=== PATIENT | male | born 1945 | race Caucasian/White ===

== ENCOUNTER 2016-12-19 13:30 | Inpatient (IN) | payer MEDICARE, BC ==
[~2016-12-19] VITALS: Ht 170.2 cm; Wt 92.9 kg
--- NOTE | ~2016-12-19 | DS ---
PATIENT'S NAME: PHOEBE COBIAN [facility] AGE: 71 Y [address] ROOM: [address] [address] LOCATION: GPCU ADMIT DATE: 12/19/2016 Discharge Summary DISCHARGE DATE: 12/23/2016 FAMILY PHYSICIAN: Kristofer Paredes MD ATTENDING PHYSICIAN: Sera Castro INCORRECT WORK TYPE BY PROVIDER 01/03/17 AO DISCHARGE DIAGNOSES: 1. Acute anterior ST-elevation myocardial infarction. 2. History of hyperlipidemia. 3. Hypertension. 4. Ejection fraction at the time of discharge was 40% to 45%. 5. Hypotension right after his percutaneous coronary intervention requiring intra-aortic balloon pump placement. 6. No ischemia involving right coronary artery territory, which was not that well imaged. DISCHARGE MEDICATIONS: 1. Try to avoid Celebrex. 2. Aldactone 25 mg half a tablet a day. 3. Protonix 40 mg a day. 4. Aspirin 81 mg a day. 5. Atorvastatin 80 mg a day. 6. Enalapril 1.25 mg twice a day. 7. Brilinta 90 mg twice a day. 8. Acetaminophen. 9. Docusate. 10. Metoprolol 25 mg twice a day. 11. Nitroglycerin as needed. COURSE IN THE HOSPITAL: Mr. Cobian is a 71-year-old male patient, who was transferred from [place] [facility] with acute anterior wall ME and was directly taken to the concrete plant laborer and primary angioplasty was performed successfully. His right coronary artery was not that well visualized because of which he underwent a stress test later. He did have some lesions in his proximal conus branch. He had a long drug-eluting stent put in and at end of the procedure, his blood pressure was rather on the lower side requiring intra- aortic balloon pump placement. His blood pressure is improved considerably and the balloon pump was removed the next day. The patient was progressing well after that and repeat echocardiogram revealed that his EF has improved from about 30% to about 40% to 45%. There were no areas of akinesia including the apex because of which he was not started on Coumadin therapy. He will be seen in the office in 2 weeks and follow up cardiac rehab will be started. His Lexiscan Cardiolite study revealed no evidence of ischemia involving the inferior wall. So no additional tests were done at this time. PATIENT'S NAME: PHOEBE COBIAN [facility] AGE: 71 Y [address] ROOM: [place] [address] LOCATION: [facility] ADMIT DATE: 12/19/2016 Discharge Summary DISCHARGE DATE: 12/23/2016 FAMILY PHYSICIAN: Kristofer Paredes MD ATTENDING PHYSICIAN: Sera Castro He is to call if he has any new symptoms when he is home. MD FLAQUITO AVALOS/adonis /[id number] INCORRECT WORK TYPE BY PROVIDER 01/03/17 AO d: 12/27/16 2127 t: 01/16/17 1454, DISCHARGE SUMMARY
--- NOTE | ~2016-12-19 | HP ---
PATIENT'S NAME: MANGO [facility] AGE: 71 Y [address] ROOM: [place] [address] LOCATION: [facility] ADMIT DATE: 12/19/2016 History & Physical DISCHARGE DATE: FAMILY PHYSICIAN: PHYSICIAN, UNKNOWN ATTENDING PHYSICIAN: Sera Castro DATE OF SERVICE: HISTORY OF PRESENT ILLNESS: Mr. Cobian is a 71-year-old male patient, who presented to the emergency room in [place] with about a 1-hour duration of chest pain, which was located over all across upper chest, into both upper arm, as well as into the jaw, associated with some sweating. This was about 7 on a scale of 1-10. He received one nitroglycerin, and an EKG showed acute anterior wall ST-segment elevation CT. I was contacted, and the transit time was felt to be about 1 hour in all, so I decided to give him heparin, Integrilin, aspirin, and bring him to the laborer brooder farm directly. Upon arrival to the laborer brooder farm, the patient still had about 4 on a scale of 1-10 chest pain. Coronary angiography and primary angioplasty were planned right away. The patient had similar chest pain lasting for about 20 minutes about a week earlier, which was also much milder and spontaneously resolved. He has never had any other kind of chest pains. 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 He has noticed that he has some shortness of breath with strenuous activities for the past 6 months or so. He has still been in functional class II with no paroxysmal nocturnal dyspnea or orthopnea. There has been no lightheadedness, dizziness, presyncope, syncope, palpitations, or ankle swelling. There is no history of rheumatic fever, heart murmur, heart failure, dilated or enlarged heart, or any diagnosed cardiac arrhythmias. There is no history of CT or angina or nitroglycerin use. MEDICATIONS: His current medications are: 1. Benazepril. 2. Amlodipine. ALLERGIES: NONE. PAST MEDICAL HISTORY: Apparently, he had a fall after he went on a medication. SOCIAL HISTORY: PATIENT'S NAME: [facility] AGE: 71 Y [address] ROOM: [place] [address] LOCATION: [facility] ADMIT DATE: 12/19/2016 History & Physical DISCHARGE DATE: FAMILY PHYSICIAN: PHYSICIAN, UNKNOWN ATTENDING PHYSICIAN: Sera Castro The patient is . He denies abusing alcohol. His appetite is good. His weight has gone up a little during wintertime. His sleep has been good. FAMILY HISTORY: No premature coronary artery disease. REVIEW OF SYSTEMS: A 12-point review of systems reveals: 1. Corrective lenses. 2. Dry cough secondary to medications. 3. DEGENERATIVE JOINT DISEASE, shoulders and hip. PHYSICAL EXAMINATION: VITAL SIGNS: On examination, his blood pressure initially was in the 140s in the laborer brooder farm, heart rate was in the 80s and regular, respiration was 18, with occasional PVCs. HEENT: Normal. NECK: Supple with no JVD, thyromegaly, lymphadenopathy, or carotid bruit. HEART: PMI is not well located. First and second heart sounds are regular. There are no added sounds or murmurs. CHEST: Clear to auscultation. ABDOMEN: Soft and nontender. Bowel sounds are normally present. EXTREMITIES: Reveal no edema. Central nervous system is intact. LABORATORY DATA: His 12-lead EKG is consistent with acute anterior wall ST-segment elevation CT. ASSESSMENT: Recent onset of ST-elevation myocardial infarction within the last 2 hours to 3 hours. RECOMMENDATION: Primary PCI. MD FLAQUITO AVALOS/adonis /[id number] D: [id number] T: [id number] HISTORY & PHYSICAL
--- NOTE | ~2016-12-19 | ESTC ---
Cardiac Perfusion Imaging Demographics Patient Name MANGO Foss Gender Male Patient Number [id number] Race Visit Number [id number] [place] [id number] Room Number G6306 Accession Number [id number] Height 67 inches Date of 1945 Weight 203.5 pounds MD Reggie Foss MD Interpreting Gloria Zamora Date of study 12/23/2016 Physician Supervising /LINDSAYP Gloria Zamora NM Technologist Luis Martinez MD Ordering Physician Gloria Zamora Stress Elizabeth Heard RVT, procurement technician RDCS Stress ECG Reading Gloria Zamora Nurse Amari Cullen RN Physician Procedure Admit Source:Transfer acute care facility. Procedure Type: Nuclear Stress Test:Cardiolite Stress Test Procedure Start time: 12/23/2016 10:00 Indications: Chest pain. Risk Factors The patient risk factors include:prior PCI on 12/19/2016;hypercholesterolemia, hypertension, last creatinine: 1.4 mg/dl and creatinine clearance: 63.18 ml/min. Conclusions Summary No TID. Medium to large area of the distal half of the anterior wall,anterior septum and apex of severe degree most consistent with prior RI. No reversible defects seen. LVEF:42%. Distal anterior wall and apex are severely hypokinetic.Distal half of septum is almost dyskinetic.Rest of LV wall segments are nearly normal. Stress Protocols Resting ECG RSR. Anteroseptal RI ?age. Pre-stress physical exam: Un changed. Predicted HR: 149 bpm ECG Findings No ECG changes suggestive of ischemia. Arrhythmias No rhythm abnormality. Symptoms SOB. Stress Interpretation Lexiscan cardilite with normal hemodynamic response. SOB.No chest pain. No ischemia. No arrythmia. Imaging Results High risk findings Summed scores - Summed stress score: 15 - Summed rest score: 12 - Summed difference score: 3 Stress ejection Ejection fraction:42 % EDV :117 ml ESV :68 ml Stroke volume :49 ml LV mass :149 gr LV size:Normal Normal LV function Imaging Protocols Rest Stress Isotope:Tc99m Sestamibi IV Isotope: Tc99m Sestamibi IV Isotope dose:13.4 mCi Isotope dose:40.3 mCi Date:12/23/2016 08:01 Date:12/23/2016 10:15 Technique: SPECT Technique: Gated Supine SPECT Supine IV remains in place after procedure. Scan Time:30 minutes post injection Scan Time:45-60 minutes post injection Procedure Medications - Regadenoson (Lexiscan) 0.4 mg IV over 10-15 sec. I.V. 0.4 mg. Medical History Admission Data Admission date: 12/19/2016 Admission Time: 14:03 Hospital Status: Inpatient. Signatures dtt: Sera Castro dtd: 12/23/16 1000 Physician Self Edit
--- NOTE | ~2016-12-19 | ECHO ---
Transthoracic Echocardiography Report (TTE) Demographics Patient Name PHOEBE COBIAN Date of Study 12/19/2016 Patient Number [id number] Visit Number [id number] Date of 1945 Room Number G6206 Gender Male Number Age 71 year(s) Referring Splicer Operator Janet RVT, RDCS Physician Sonia Physician Interpreting Gloria Zamora MD News Analyst Physician Supervising Ordering Gloria Zamora MD, MD/MLP Physician Nurse Stress Tube Building Machine Operator Conclusions Contractility Score Summary Hypokinesis of the Mid anterior, the Mid britany-septal, the Mid infero-septal, the Apical septal and the Apical cap segments. Summary Technically difficult exam. Definity 4 ml administered. The estimated left ventricular ejection fraction is 30%.Large area of the anterior wall,septum and apex are severely hypokinetic.LV wall thickness and internal dimensions are normal. Trivial MR,TR and NC. Procedure Type of Study TTE procedure:2D Echocardiogram, Complete Echo with Contrast NH. Procedure Date Date: 12/19/2016 Start: 07:18 PM Study Location: Inpatient Portable Technical Quality: Limited visualization Additional Indications:STEMI Appropriate Use Criteria: 9 Patient Status: STAT HR: 99 bpm BP: 105/70 mmHg Allergies - No known allergies. M-Mode/2D Measurements LV Diastolic Dimension: 3.95 cm LV Systolic Dimension: 3.41 cm LV Septum Diastolic: 1.08 cm LV PW Diastolic: 1.23 cm AO Root Dimension: 2.7 cm Cardiac Output: 5.76 l/min AV Cusp Separation: 1.6 cm RV Diastolic Dimension: 2.99 cm LA volume: 27 ml LVOT: 2.1 cm RV Base: 2.3 cm LVOT VTI: 16.8 cm RV Mid: 2.02 cm LV Stroke volume: 58.16 ml TAPSE: 1.89 cm TDI-S': 14.2 cm/s Doppler Measurements AV Peak Velocity: 1.17 m/s MV Peak E-Wave: 0.59 m/s AV Peak Gradient: 5.48 mmHg MV Peak A-Wave: 1.02 m/s AV Mean Gradient: 4 mmHg MV E/A Ratio: 0.58 LVOT Peak Velocity: 0.73 m/s MV P1/2t: 52 msec TR Gradient:11.97 mmHg PV Peak Velocity: 1.3 m/s Estimated RAP:3 mmHg PV Peak Gradient: 6.76 mmHg Estimated RVSP: 15 mmHg Estimated PASP: 14.97 mmHg E' Septal Velocity: 0.05 m/s A' Septal Velocity: 0.1 m/s E' Lateral Velocity: 0.06 m/s A' Lateral Velocity: 0.13 m/s Findings Left Ventricle Normal LV wall thickness and internal dimensions.LVEF:30%.Large area of the anterior wall,septum and apex are severely hypokinetic. Right Ventricle Normal right ventricle structure and function. Left Atrium Normal left atrial size. Right Atrium Normal right atrial size. Mitral Valve Trivial mitral regurgitation by color Doppler. Aortic Valve Normal aortic valve structure and function. Tricuspid Valve Trivial tricuspid regurgitation by color Doppler. Pulmonic Valve Trivial, Mild pulmonic valve regurgitation by color Doppler. Pericardial Effusion No evidence of pericardial effusion. Miscellaneous Visualized portions of the aortic root and ascending aorta appear normal in size. Pleural Effusion No evidence of pleural effusion. Contractility Score LV regional wall motion:(0-Non visualized 1-Normal 2-Hypokinesis 3-Akinesis 4-Dyskinesis 5-Aneurysm) Signature dtt: Sera Castro dtd: 12/19/16 1918 Physician Self Edit
--- NOTE | ~2016-12-19 | CATH ---
Cardiac Diagnostic + PCI Report Demographics Patient Name MANGO Foss Gender Male Date of 1945 Age 71 year(s) Patient Number [id number] Date of Study 12/19/2016 Visit Number [id number] Room Number G[address] [place] [id number] Ht 170.18 cm Wt 92.3 kg Referring Jayna Ortega Primary Physician Physician KEZIA Performing Gloria Secondary Physician Physician Sera MCLEAN Diagnostic Gloria Assisting Physician Physician Sera MCLEAN Interventional Gloria Physician Director Summer Sessions Physician Sera MCLEAN Findings and Conclusions Diagnostic Findings and Conclusion Anterior STEMI. LVEDP 24. Heavy calcification involving proximal coronaries. Ostial/Proximal LAD 100% stenosis. Low blood pressure worrisome for cardiogenic shock. Diagnostic Recommendations PCI of ostial/proximal LAD. IABP or mechanical circulatory support. Interventional Findings and Conclusion Successful PCI of ostial/prox LAD lesion into OBB 3 flow distally. IABP placed, pressures augmented to 120 mmHg. Interventional Recommendations DAPT for one year. Aggressive secondary precaution measures. Procedure Description The patient was brought to the diagnostic cardiac catheterization-EP laboratory by emergency personal. Physician deemed procedure as EMERGENT. The planned puncture-incision site(s) were shaved and prepped with ChloraPrep and draped in the usual sterile manner. Conscious sedation, supplemental oxygen, and pain control medications were delivered by a registered nurse under physician guidance. Surface ECG rhythm, blood pressure measurement, and pulse oximetry were monitored throughout the procedure. Arterial access. The access site was infiltrated with lidocaine. The vessel was entered with the Seldinger technique. A sheath was advanced into the vessel and used for catheter placement. Selective left coronary angiography. A catheter was advanced into the left coronary vessel ostium under Fluoroscopic guidance. Contrast was injected by hand. Images were obtained in multiple projections. Selective right coronary angiography. A catheter was advanced into the right coronary vessel ostium under fluoroscopic guidance. Contrast was injected by hand. Images were obtained in multiple projections. Left heart catheterization. A catheter was advanced across the aortic valve to the left ventricle under fluoroscopic guidance. Resting hemodynamics were obtained. Angioplasty and Stent Placement: A guiding catheter was used to intubate the vessel. A 0.14 wire was then used to cross the lesion. A balloon catheter was placed across the lesion and inflated. The balloon catheter was then removed. A Drug Eluting Stent was placed and inflated. Post placement angiograms were performed. IABP placement. The balloon catheter was advanced into the aorta and the tip was fluoroscopically positioned just distal to the left subclavian artery origin. The floppy guidewire was removed, and the central lumen of the catheter was flushed and attached to a pressure transducer. Balloon pumping was initiated, adjusting inflation and deflation times to maximize diastolic augmentation and minimize presystolic LV afterload. The intra-aortic balloon catheter was sutured in place at the end of the procedure. Arterial artery hemostasis was achieved. The patient was transferred to a regular nursing floor via cart accompanied by a nurse. The patient left the laboratory in stable condition. Diagnostic Cath Status: Emergency Interventional Cath Status: Emergency Procedure Procedure Type Diagnostic procedure:Angiography:, Coronary Angios w/LHC, Support:, IABP:, Insertion PCI procedure:Drug Eluting Coronary Stent:, LAD Indications: Elevated Troponin, Acute anterior wall ME and Cardiogenic shock. Angiographic Findings Dominance: Right Cardiac Arteries and Lesion Findings LMCA: Luminal irregularities. LAD: Lesion on Prox LAD: Ostial.100% stenosis 32 mm length reduced to 0%. Pre procedure BOB 0 flow was noted. Post Procedure BOB III flow was present. The guidewire cross was successful.The lesion was diagnosed as a moderate risk lesion.Culprit lesion. Devices used - Luge Wire .014 x 182. Number of passes: 1. - Emerge Balloon 2.5 x 15. 2 inflation(s) to a max pressure of: 10 patricia. - Promus Premier 3.0 x 32 Stent. 1 inflation(s) to a max pressure of: 14 patricia. LCx: High, lateral, small. OM2, 3 and 4 are small. Lesion on 1st Ob Kelle: Proximal subsection.40% stenosis . Lesion on 1st Ob Kelle: Distal subsection.80% stenosis . Lesion on 3rd Ob Kelle: Mid subsection.90% stenosis . Comments:OM 5. RCA: Faintly visualized. PL not selectively engaged. Coronary Tree Procedure Data Procedure Date Date: 12/19/2016Start: 02:38 PM Entry Locations - Retrograde Percutaneous access was performed through the Right Femoral artery (Primary location). A 7 Fr sheath was inserted. Hemostasis was successfully obtained using a sterile dressing to secure the sheath in place. Closure Comments: Dressing in place by Matthew Zimmerman. Procedure Medications Order and Administration + + + + + !Time !Medication !Dosage !Route ! + + + + 12/19/2016 02:40 PM!Versed !1 mg !I.V. ! + + + + + 12/19/2016 02:40 PM!Fentanyl !50 mcg !I.V. ! + + + + 12/19/2016 02:48 PM!Versed !1 mg !I.V. ! + + + + + !12/19/2016 02:49 PM!Heparin (ACC_3) !3000 units! ! + + + + + !12/19/2016 03:00 PM!0.9% NaCl !100 ml !I.V. bolus ! + + + + + !12/19/2016 03:05 PM!Atropine !0.5 mg !I.V. ! + + + + + !12/19/2016 03:07 PM!Sudarshan-Synephrine (Phenylephrine)!50 mcg !I.V. bolus ! + + + + + !12/19/2016 03:08 PM!Sudarshan-Synephrine (Phenylephrine)!50 mcg !I.V. bolus ! + + + + + !12/19/2016 03:10 PM!Sudarshan-Synephrine (Phenylephrine)!100 mcg !I.V. bolus ! + + + + + !12/19/2016 03:13 PM!Sudarshan-Synephrine (Phenylephrine)!100 mcg !I.V. bolus ! + + + + + !12/19/2016 03:23 PM!Sudarshan-Synephrine (Phenylephrine)!40 mcg/min!I.V. bolus ! + + + + + !12/19/2016 03:23 PM!Sudarshan-Synephrine (Phenylephrine)!50 mcg !I.V. bolus ! + + + + + !12/19/2016 03:29 PM!Sudarshan-Synephrine (Phenylephrine)!60 mcg/min!I.V. bolus ! + + + + + !12/19/2016 03:29 PM!Sudarshan-Synephrine (Phenylephrine)!60 mcg/min!I.V. bolus ! + + + + + !12/19/2016 03:45 PM!Heparin Drip ( 2500u/250ml) ! !I.V. drip ! + + + + + !12/19/2016 03:46 PM!Brilinta (Ticagrelor) (ACC_20)!180 mg !P.O. ! + + + + + 12/19/2016 04:00 PM!Sodium Bicarbonate (Bolus) !70 mg !I.V. ! + + + + + 12/19/2016 04:12 PM!Amiodarone !150 mg !I.V. bolus ! + + + + + Devices Used - A6 Fr. BS JR 4 Diag. Catheterwas used for:Right coronary angiography. - A6 Fr. BS JL 4 Diag. Catheterwas used for:Left coronary angiography. - A6 Fr. EBU 3.5 Guide Catheterwas used for:LAD Intervention. - A6 Fr. JJ 3DRC Diag. Catheterwas used for:Right coronary angiography.Unable to cannulate the vessel. - A6 Fr. BS AL1 Diag. Catheterwas used for:Right coronary angiography.Unable to cannulate the vessel. - A6 Fr. BS AR Mod Diag. Catheterwas used for:Right coronary angiography.Unable to cannulate the vessel. - A6 Fr. BS AR1 Diag. Catheterwas used for:Right coronary angiography.Unable to cannulate the vessel. - A6 Fr. BS JR 4 Diag. Catheterwas used for:Right coronary angiography. - A6 Fr. BS Angled Pigtail Diag. Catheterwas used for:LV Pressures. Contrast Material - Isovue [id number] ml Fluoroscopy Time: Diagnostic: 23:06 minutes. Total: 23:06 minutes. Fluoroscopy Dose: Diagnostic: 2844 mGy. Total: 2844 mGy. Estimated Blood Loss: 57 ml. IABP: IABP was Inserted after PCI has begun. Medical History Allergies - No known allergies. Risk Factors The patient risk factors include:hypertension, last creatinine: 1.4 mg/dl and creatinine clearance: 63.18 ml/min. Admission Data Admission Date: 12/19/2016 Admission Time: 02:03 PM Admit Source: [facility] Insurance Payors: Medicare. Clinical Evaluation Leading to Procedure - The patient's CAD presentation was assessed as: STEMI.The symptom onset was first noted on 12/19/2016 11:30 AM(time was estimated). - The patient has been in a state of cardiogenic shock within the last 24 hrs. Hemodynamics Condition: Rest O2 Consumption: Estimated: 252.70Heart Rate: 92 bpm Pressures (mmHg) +-----+ + !Site !Pressure ! +-----+ + !AO !126/78 (101) ! +-----+ + !AO !254/249 (253) ! +-----+ + !AO !82/56 (67) ! +-----+ + !AO !79/54 (65) ! +-----+ + !AO !/ (270) ! +-----+ + !LV ! ,27 ! +-----+ + !LV ! ,27 ! +-----+ + !AO !92/53 (70) ! +-----+ + !LV ! , ! +-----+ + Valve Gradients and Areas + +---------+---------+---------+ +---------+ + !Valve !Peak !Mean !Area !Index !Flow !Source ! + +---------+---------+---------+ +---------+ + !Aortic !0 !0 ! ! ! ! ! + +---------+---------+---------+ +---------+ + !Aortic !0 !0 ! ! ! ! ! + +---------+---------+---------+ +---------+ + Shunts Oxygen Values O2 Capacity 204 O2 Consumption 252.7 Signatures dtt: Sera Castro dtsunny: 12/19/16 1438 Physician Self Edit
--- NOTE | ~2016-12-19 | ECHO ---
Transthoracic Echocardiography Report (TTE) Demographics Patient Name PHOEBE COBIAN Date of Study 12/23/2016 Patient Number [id number] Visit Number [id number] Date of 1945 Room Number G6306 Gender Male Number Age 71 year(s) Referring Gloria Zamora Lobby Porter Glory Brown, Physician RT,RVT,RDCS Physician Interpreting Gloria Zamora Loft Patternmaker Physician Supervising Ordering Gloria Zamora MD/MLP Physician MD Nurse Stress Commission Auditor Conclusions Summary The estimated left ventricular ejection fraction is 40-45%.Distal half of septum,apex and distal lateral segments are moderate to severely hypokinetic.Remainder of LV wall segments are low normal.LV internal dimension and wall thickness are probably normal. Procedure Type of Study TTE procedure:Echo Limited w/ Contrast. Procedure Date Date: 12/23/2016 Start: 11:05 AM Study Location: Echo Lab Technical Quality: Good visualization Indications:Coronary artery disease. Additional Indications:EF evaluation. Appropriate Use Criteria: 7 Patient Status: Routine HR: 86 bpm BP: 140/84 mmHg Allergies - No known allergies. Signature dtt: Sera Castro dtd: 12/23/16 1105 Physician Self Edit
[2016-12-19] MEDS ORDERED: HYDROCODON-ACE1 EAC4 PO (18:24)
[2016-12-19] MEDS ORDERED: CELEBREX100 MG PO (18:24)
[2016-12-19] MEDS ORDERED: NORVASC10 MG PO (18:24)
[2016-12-19] MEDS ORDERED: FISH OIL 1,0001 EAC1 PO (18:25)
[2016-12-19] MEDS ORDERED: HYDROCHLOROTH12.5 MG PO (18:25)
[2016-12-19] MEDS ORDERED: FLOMAX0.4 MG PO (18:25)
[2016-12-19] MEDS ORDERED: LOTENSIN40 MG PO (18:25)
[2016-12-19] MEDS ORDERED: MAG-OX-400(241400 MG PO (18:26)
[2016-12-19] MEDS ORDERED: VITAMIN E400 UNI2 PO (18:26)
[2016-12-19] MEDS ORDERED: THERAGRAN-M1 TAB PO (18:26)
[2016-12-19] MEDS ORDERED: GARLIC1000 MG PO (18:26)
[2016-12-19] MEDS ORDERED: VINEGAR PO (18:27)
[2016-12-19 19:30] LABS: BASOPHIL % 0.3 %; EOSINOPHIL % 0.1 %; HEMATOCRIT 39.8 % (37.0-53.0); HEMOGLOBIN 13.5 g/dL (11.0-16.0); IMMATURE GRANULOCYTE # 0.1 K/uL (0.0-0.3); IMMATURE GRANULOCYTE % 0.5 %; LYMPHOCYTE # 0.9 K/uL (0.8-4.0); LYMPHOCYTE % 8.4 %; MCH 29.5 pg (27.0-34.0); MCHC 33.9 gm/dL (32.0-36.5); MCV 87.1 fl (83.0-98.0); MONOCYTE # 0.6 K/uL (0.0-1.0); MONOCYTE % 5.3 %; MPV 10.9 fl (9.4-12.4); NEUTROPHIL # (ANC) 9.1 K/uL (1.4-9.0); NEUTROPHIL % 85.4 %; NRBC % 0 /100WBC (0-0.00); PLATELET COUNT 177 K/uL (150-450); RBC 4.57 M/uL (3.50-5.50); RDW-CV 14.8 % (11.9-14.6); WBC 10.7 K/uL (4.0-11.0)
[2016-12-19 20:08] LABS: CPK 3238 IU/L (35-332)
[2016-12-20 01:33] LABS: CPK 3843 IU/L (35-332)
[2016-12-20 07:06] LABS: BASOPHIL % 0.2 %; EOSINOPHIL # 0.1 K/uL (0.0-0.5); EOSINOPHIL % 0.7 %; HEMATOCRIT 39.1 % (37.0-53.0); HEMOGLOBIN 13.2 g/dL (11.0-16.0); IMMATURE GRANULOCYTE % 0.3 %; LYMPHOCYTE # 1.1 K/uL (0.8-4.0); LYMPHOCYTE % 9.1 %; MCH 29.3 pg (27.0-34.0); MCHC 33.8 gm/dL (32.0-36.5); MCV 86.7 fl (83.0-98.0); MONOCYTE % 8.8 %; MPV 10.8 fl (9.4-12.4); NEUTROPHIL # (ANC) 9.3 K/uL (1.4-9.0); NEUTROPHIL % 80.9 %; NRBC % 0 /100WBC (0-0.00); PLATELET COUNT 170 K/uL (150-450); RBC 4.51 M/uL (3.50-5.50); RDW-CV 14.9 % (11.9-14.6); WBC 11.5 K/uL (4.0-11.0)
[2016-12-20 07:26] LABS: ALBUMIN 2.9 gm/dL (3.5-5.0); ANION GAP 13.3 (10.0-19.0); CALCIUM 7.8 mg/dL (8.5-10.5); CREATININE 1.4 mg/dL (0.6-1.3); POTASSIUM 3.3 mMol/L (3.7-5.1); TOTAL BILIRUBIN 0.6 mg/dL (0.0-1.5); TOTAL PROTEIN 6.1 g/dL (6.0-8.4)
[2016-12-21 04:43] LABS: BASOPHIL % 0.2 %; EOSINOPHIL % 0.3 %; HEMATOCRIT 41.7 % (37.0-53.0); IMMATURE GRANULOCYTE % 0.3 %; LYMPHOCYTE % 8.2 %; MCH 29.6 pg (27.0-34.0); MCHC 33.6 gm/dL (32.0-36.5); MCV 88.2 fl (83.0-98.0); MONOCYTE % 8.1 %; MPV 10.7 fl (9.4-12.4); NEUTROPHIL # (ANC) 10.2 K/uL (1.4-9.0); NEUTROPHIL % 82.9 %; NRBC % 0 /100WBC (0-0.00); PLATELET COUNT 158 K/uL (150-450); RBC 4.73 M/uL (3.50-5.50); RDW-CV 15.1 % (11.9-14.6); WBC 12.3 K/uL (4.0-11.0)
[2016-12-21 05:00] LABS: ANION GAP 11.3 (10.0-19.0); CALCIUM 8.1 mg/dL (8.5-10.5); CREATININE 1.2 mg/dL (0.6-1.3)
[2016-12-21 05:01] LABS: POTASSIUM 4.3 mMol/L (3.7-5.1)
[2016-12-23] MEDS ORDERED: ASPIRIN EC81 MG PO (14:20)
[2016-12-23] MEDS ORDERED: LIPITOR80 MG PO (14:21)
[2016-12-23] MEDS ORDERED: VASOTEC2.5 MG PO (14:23)
[2016-12-23] MEDS ORDERED: PROTONIX40 MG PO (14:33)
[2016-12-23] MEDS ORDERED: ALDACTONE25 MG PO (14:33)
[2016-12-23] MEDS ORDERED: BRILINTA90 MG PO (14:34)
[2016-12-23] MEDS ORDERED: TYLENOL325 MG PO (14:35)
[2016-12-23] MEDS ORDERED: COLACE100 MG PO (14:40)
[2016-12-23] MEDS ORDERED: LOPRESSOR25 MG PO (14:46)
[2016-12-23] MEDS ORDERED: NITROSTAT0.4 MG SL (14:47)
== END 2016-12-23 14:30 | disposition disaster alternative care site (69) | DRG 270 ==
LOC: GPCU 13:30 → GICU 14:03 → GPCU 12-22 17:02
PROVIDERS: ADMIT Internal Medicine Interventional Cardiology
PROC: 4A023N7 Measurement of Cardiac Sampling and Pressure, Left Heart, Percutaneous Approach (ICD-10-PCS; principal; 2016-12-19)
PROC: 5A02210 Assistance with Cardiac Output using Balloon Pump, Continuous (ICD-10-PCS; 2016-12-19)
PROC: 027034Z Dilation of Coronary Artery, One Artery with Drug-eluting Intraluminal Device, Percutaneous Approach (ICD-10-PCS; 2016-12-19)
PROC: B211YZZ Fluoroscopy of Multiple Coronary Arteries using Other Contrast (ICD-10-PCS; 2016-12-19)
DX: I21.09 ST elevation (STEMI) myocardial infarction involving other coronary artery of anterior wall (principal); R57.0 Cardiogenic shock; I47.2 Ventricular tachycardia; I10 Essential (primary) hypertension; E78.5 Hyperlipidemia, unspecified
CPT/HCPCS: A9500; C1725; C1769; C1874; C1887; C9606; J0282; J0461; J1327; J1644; J2250; J2370; J2405; J2785; J3010; J3475; J7030; J7050; Q9957

== ENCOUNTER → 2016-12-19 | Outpatient (CLI) | payer MEDICARE, BC ==
[~2016-12-19] MED LIST: ALDACTONE25 MG PO; ASPIRIN EC81 MG PO; BRILINTA90 MG PO; CELEBREX100 MG PO; COLACE100 MG PO; FISH OIL 1,0001 EAC1 PO; FLOMAX0.4 MG PO; GARLIC1000 MG PO; HYDROCHLOROTH12.5 MG PO; HYDROCODON-ACE1 EAC4 PO; LIPITOR80 MG PO; LOPRESSOR25 MG PO; LOTENSIN40 MG PO; MAG-OX-400(241400 MG PO; MUCOMYST 20200 MG/M1 PO; NITROSTAT0.4 MG SL; NORVASC10 MG PO; PROTONIX40 MG PO; THERAGRAN-M1 TAB PO; TYLENOL325 MG PO; VASOTEC2.5 MG PO; VINEGAR PO; VITAMIN E400 UNI2 PO
== END | disposition disaster alternative care site (69) ==
LOC: GAIR 13:32
DX: R07.9 Chest pain, unspecified (principal); I10 Essential (primary) hypertension; Z79.899 Other long term (current) drug therapy
CPT/HCPCS: A0422; A0431; A0436; Q9957

== ENCOUNTER → 2017-03-23 | Outpatient (CLI) | payer MEDICARE, BC ==
--- NOTE | ~2017-03-23 | ESTC ---
Cardiac Perfusion Imaging Demographics Patient Name MANGO Foss Gender Male Patient Number [id number] Race Visit Number [id number] [place] [id number] Room Number Accession Number [id number] Height 67 inches Date of 1945 Weight 195 pounds Constantino Zamora Date of study 03/23/2017 Physician MD Supervising /LINDSAYP Rafael Pearce NM Technologist India Foss MD Ordering Physician Stress wildlife biology technician Stress ECG Reading Rafael Pearce Nurse Blas Ortega Physician Prudence MCLEAN RN Subhash López RN Procedure Admit Source:Other. Procedure Type: Nuclear Stress Test:Cardiolite Stress Test Procedure Start time: 03/23/2017 08:56 Indications: History of CAD. Risk Factors The patient risk factors include:prior PCI on 12/19/2016;physical activity, hypertension, dyslipidemia and prior [place] . Conclusions Summary DTS:6 (lOW RISK) TID: 1.22 Distal anterior moderate ischemia. LVEF:45%. Moderate anterior hypokinesia. Stress Protocols Resting ECG Normal sinus rhythm. PVCs. Pre-stress physical exam: Patient assessed by Dr Hall prior to testing. Stress Protocol:Exercise Predicted HR: 148 bpm ECG Findings No ECG changes suggestive of ischemia. Arrhythmias No new rhythm abnormality. Symptoms Shortness of breath. Stress Interpretation Appropriate hemodynamic response to exercise. No significant ST-T wave changes with exercise. EKG portion is negative for ischemia by diagnostic criteria. The Mir Treadmill score was 6 .This corresponds to a low risk stress test. Imaging Results Applied corrections - Motion correction applied High risk findings Summed scores - LV dilatation (TID) : 1.22 - Summed stress score: 13 - Summed rest score: 9 - Summed difference score: 4 Stress ejection Ejection fraction:45 % EDV :110 ml ESV :60 ml Stroke volume :50 ml LV mass :129 gr LV size:Normal LV systolic function impairment: Mild Imaging Protocols Rest Stress Isotope:Tc99m Sestamibi IV Isotope: Tc99m Sestamibi IV Isotope dose:14.1 mCi Isotope dose:44.3 mCi Date:03/23/2017 07:31 Date:03/23/2017 09:49 Technique: SPECT Technique: Gated Supine SPECT Supine Scan Time:45-60 minutes post Scan Time:45-60 minutes post injection injection Medical History Admission Data Admission date: 03/23/2017 Admission Time: 07:03 Hospital Status: Outpatient. Signatures dtt: Sera Castro dtd: 03/23/17 0856 Physician Self Edit
== END | disposition disaster alternative care site (69) ==
LOC: GRAD 07:03
DX: I25.10 Atherosclerotic heart disease of native coronary artery without angina pectoris (principal)
CPT/HCPCS: A9500

== ENCOUNTER → 2017-04-03 | Outpatient (CLI) | payer MEDICARE, BC ==
[2017-04-03 11:25] LABS: BASOPHIL % 0.4 %; EOSINOPHIL # 0.2 K/uL (0.0-0.5); EOSINOPHIL % 2.4 %; HEMATOCRIT 43.9 % (37.0-53.0); HEMOGLOBIN 14.8 g/dL (11.0-16.0); IMMATURE GRANULOCYTE % 0.3 %; LYMPHOCYTE # 1.1 K/uL (0.8-4.0); LYMPHOCYTE % 15.1 %; MCH 31.2 pg (27.0-34.0); MCHC 33.7 gm/dL (32.0-36.5); MCV 92.4 fl (83.0-98.0); MONOCYTE # 0.6 K/uL (0.0-1.0); MPV 11.5 fl (9.4-12.4); NEUTROPHIL # (ANC) 5.5 K/uL (1.4-9.0); NEUTROPHIL % 73.8 %; NRBC % 0 /100WBC (0-0.00); PLATELET COUNT 170 K/uL (150-450); RBC 4.75 M/uL (3.50-5.50); RDW-CV 14.6 % (11.9-14.6); WBC 7.5 K/uL (4.0-11.0)
[2017-04-03 11:34] LABS: ALBUMIN 3.6 gm/dL (3.5-5.0); ANION GAP 10.3 (10.0-19.0); CALCIUM 8.8 mg/dL (8.5-10.5); CREATININE 1.3 mg/dL (0.6-1.3); POTASSIUM 4.3 mMol/L (3.7-5.1)
== END ==
LOC: LGSOS 10:50
PROVIDERS: Internal Medicine Interventional Cardiology
DX: I25.10 Atherosclerotic heart disease of native coronary artery without angina pectoris (principal)

== ENCOUNTER 2017-04-10 10:47 | Outpatient (CLI) | payer MEDICARE, BC ==
[~2017-04-10] VITALS: Ht 170.2 cm; Wt 86.7 kg
--- NOTE | ~2017-04-10 | CATH ---
Cardiac Diagnostic + PCI Report Demographics Patient Name MANGO Foss Gender Male Date of 1945 Age 72 year(s) Patient Number [id number] Date of Study 04/10/2017 Visit Number [id number] Room Number [id number] [place] [id number] Ht 170.18 cm Wt 86.7 kg Referring Reggie Foss MD Primary Physician Physician Performing Gloria Secondary Physician Physician Sera MCLEAN Diagnostic Gloria Assisting Physician Physician Sera MCLEAN Interventional Gloria Physician Polisher Numeral Physician Sera MCLEAN Findings and Conclusions Diagnostic Findings and Conclusion LVEDP 7. No gradient across aortic valve. Stent seen in LAD. Calcification involving proximal coronaries. Diagnostic Recommendations iFR LCFX and OM 2. Interventional Findings and Conclusion iFR OM 2 0.99 iFR distal LCFX 0.99 Interventional Recommendations Continue medical treatment. Procedure Description The patient was brought to the diagnostic cardiac catheterization-EP laboratory in the fasting, non-sedated state. Informed consent was obtained in the written and verbal form after the risks and benefits were explained. The patient had no further questions and agreed to proceed. The planned puncture-incision site(s) were shaved and prepped with ChloraPrep and draped in the usual sterile manner. Conscious sedation, supplemental oxygen, and pain control medications were delivered by a registered nurse under physician guidance. Surface ECG rhythm, blood pressure measurement, and pulse oximetry were monitored throughout the procedure. Arterial access. The access site was infiltrated with lidocaine. The vessel was entered with the Seldinger technique. A sheath was advanced into the vessel and used for catheter placement. Selective left coronary angiography. A catheter was advanced into the left coronary vessel ostium under Fluoroscopic guidance. Contrast was injected by hand. Images were obtained in multiple projections. Selective right coronary angiography. A catheter was advanced into the right coronary vessel ostium under fluoroscopic guidance. Contrast was injected by hand. Images were obtained in multiple projections. Left heart catheterization. A catheter was advanced across the aortic valve to the left ventricle under fluoroscopic guidance. Resting hemodynamics were obtained. iFR measurement was performed. The vessel was entered with a guiding catheter. The iFR wire was normalized and then advanced across the lesion. Measurements were taken. Arterial artery hemostasis was achieved. The patient was transferred to a regular nursing floor via cart accompanied by a nurse. The patient left the laboratory in stable condition. Diagnostic Cath Status: Elective Procedure Procedure Type Diagnostic procedure:Angiography:, Coronary Angios /[facility] PCI procedure:Additional Imaging:, FFR/iFR:, Initial Vessel Indications: Abnormal Stress Test. The procedure was explained in detail to the patient. Risks, complications and alternative treatments were reviewed. Written consent was obtained. Medications Reviewed with Patient prior to Procedure. Angiographic Findings Dominance: Mixed Cardiac Arteries and Lesion Findings LMCA: Minor Luminal Irregularities.Short. LAD: Proximal/ostial stent patent. Moderate diffuse disease. Type 3 vessel. D1 small to medium. There is a previous stent on Prox LAD Ostial. Lesion on Mid LAD: 30% stenosis . Lesion on 1st Diag: Ostial.75% stenosis . LCx: OM 2 large. OM 6 very small < 1 mm. Lesion on Dist CX: 30% stenosis . Devices used - Verrata Pressure Wire. Number of passes: 1. Lesion on 2nd Ob Kelle: Proximal subsection.50% stenosis . RCA: Small. Multiple 90 % lesion after RV branch 100%. Very small PDA but fills with retrograde RCA probably codominant. Lesion on Prox RCA: 90% stenosis . Lesion on Mid RCA: Proximal subsection.100% stenosis . Coronary Tree Procedure Data Procedure Date Date: 04/10/2017Start: 01:18 PMEnd: 02:16 PM Entry Locations - Retrograde Percutaneous access was performed through the Right Radial artery (Primary location). A 6 Fr sheath was inserted. Hemostasis was successfully obtained using Mechanical Compression. Closure Comments: R band with 13 cc air deployed by CLARITA Gonzales.. Procedure Medications Order and Administration + + + + + !Time !Medication !Dosage !Route ! + + + + + !04/10/2017 01:19 !Fentanyl !50 mcg !I.V. ! !PM ! ! ! ! + + + + + !04/10/2017 01:21 !Versed !1 mg !I.V. ! !PM ! ! ! ! + + + + + !04/10/2017 01:22 !Radial Nitroglycerin !100 mcg !I.A. ! !PM ! ! ! ! + + + + 04/10/2017 01:22 !Radial 2% Lidocaine !40 mg !I.A. ! !PM ! ! ! ! + + + + + !04/10/2017 01:24 !Heparin (ACC_3) !5000 units !I.V. ! !PM ! ! ! ! + + + + + !04/10/2017 01:26 !0.9% NaCl !250 ml !I.V. bolus ! !PM ! ! ! ! + + + + + !04/10/2017 01:43 !Angiomax (Bivalirudin) !65 mg !I.V. bolus ! !PM !(ACC_5) ! ! ! + + + + + !04/10/2017 01:43 !Angiomax (Bivalirudin) !1.75 mg/kg/hr!I.V. drip ! !PM !(ACC_5) ! ! ! + + + + + !04/10/2017 02:01 !Angiomax (Bivalirudin) ! !I.V. drip ! !PM !(ACC_5) ! ! ! + + + + + Devices Used - A6 Fr. BS JR 4 Diag. Catheterwas used for:Right coronary angiography. - A6 Fr. BS JL 3.5 Diag. Catheterwas used for:Left coronary angiography. - A6 Fr. XB 4 Guide Catheterwas used for:Fractional Flow [place] measurments. Contrast Material - Isovue [id number] ml Fluoroscopy Time: Diagnostic: 13:42 minutes. Total: 13:42 minutes. Fluoroscopy Dose: Diagnostic: 1681 mGy. Total: 1681 mGy. Estimated Blood Loss: 20 ml. Medical History Performed Procedures and Imaging Results - Stress testing with SPECT MPIwas performed. Results were: Positive. Risk/Extent of ischemia was: Intermediate risk. Allergies - No known allergies. Risk Factors The patient risk factors include:prior PCI on 12/19/2016;hypertension, family history of premature CAD, last creatinine: 1.3 mg/dl, creatinine clearance: 62.99 ml/min, dyslipidemia and prior [place] . Admission Data Admission Date: 04/10/2017 Admission Time: 10:47 AM Admit Source: Other Insurance Payors: Medicare. Admission Medications + +------+------+ + + + + !Medication !Dosage!Times !Last !Last !Administered !Comments ! ! ! !Per !Delivery !Delivery ! ! ! ! ! !Day !Date !Time ! ! ! + +------+------+ + + + + !Aspirin ! ! ! ! !Yes ! ! !(any) ! ! ! ! ! ! ! + +------+------+ + + + + !HILARY ! ! ! ! !Yes ! ! !Inhibitor ! ! ! ! ! ! ! !(any) ! ! ! ! ! ! ! + +------+------+ + + + + !Beta Aruna! ! ! ! !Yes ! ! !(any) ! ! ! ! ! ! ! + +------+------+ + + + + !Statin (any)! ! ! ! !Yes ! ! + +------+------+ + + + + Clinical Evaluation Leading to Procedure - The patient's CAD presentation was assessed as: Unstable angina. 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 Anti-anginal medications were prescribed during the past two weeks. The medication is: Beta Blockers. Hemodynamics Condition: Rest O2 Consumption: Estimated: 218.88Heart Rate: 57 bpm Pressures (mmHg) +-----+ + !Site !Pressure ! +-----+ + !LV !99/0 ,7 ! +-----+ + !LV !97/1 ,7 ! +-----+ + !AO !100/58 (77) ! +-----+ + !LV !102/0 ,5 ! +-----+ + !AO !99/55 (75) ! +-----+ + !AO !100/58 (78) ! +-----+ + Valve Gradients and Areas + +---------+---------+---------+ +---------+ + !Valve !Peak !Mean !Area !Index !Flow !Source ! + +---------+---------+---------+ +---------+ + !Aortic !3 !6 ! ! ! ! ! + +---------+---------+---------+ +---------+ + !Aortic !3 !6 ! ! ! ! ! + +---------+---------+---------+ +---------+ + Shunts Oxygen Values O2 Capacity 201.28 O2 Consumption 218.88 Discharge Data Discharge Date: 04/10/2017 Hospital Status: Outpatient Signatures dtt: Sera Castro dtd: 04/10/17 1318 Physician Self Edit
[~2017-04-10 10:47] MED LIST changes: -MUCOMYST 20200 MG/M1 PO
[2017-04-10] MEDS ORDERED: MUCOMYST 20200 MG/M1 PO (11:41)
== END 2017-04-10 19:21 | disposition disaster alternative care site (69) ==
LOC: GPCU 10:47 → GPOC 10:47
PROC: 4A023N7 Measurement of Cardiac Sampling and Pressure, Left Heart, Percutaneous Approach (ICD-10-PCS; principal; 2017-04-10)
PROC: B216YZZ Fluoroscopy of Right and Left Heart using Other Contrast (ICD-10-PCS; 2017-04-10)
DX: I25.110 Atherosclerotic heart disease of native coronary artery with unstable angina pectoris (principal)
CPT/HCPCS: C1887; C1894; J0583; J1644; J2001; J2250; J3010; J7030; J7060